=== PATIENT | male | born 1980 | race Caucasian/White ===

== ENCOUNTER 2022-11-13 00:33 | Outpatient (CLI) | payer OTHER, SELFPAY ==
--- NOTE | 2022-11-13 09:15 | DI.MRI_ITS ---
Exam(s) MR LOWER JOINT RT WO EXAM: MR LOWER JOINT RT WO CLINICAL HISTORY: RT KNEE PAIN, M25.561; RT KNEE INJURY, [id number]; INSTABILITY, M25.361. TECHNIQUE: Multiplanar multisequence MRI was performed. COMPARISON: No exams were available for comparison FINDINGS: Exam was somewhat limited due to patient motion. BONES: Contusion posterior aspect of lateral tibial plateau and medial aspect of medial femoral condy le. JOINTS: A small joint effusion is present. Articular cartilage: Patellofemoral joint: Articular cartilage is unremarkable. Medial femoral tibial joint: Articular cartilage is unremarkable. Lateral femoral tibial joint: Articular cartilage is unremarkable. TENDONS: Extensor mechanism: Unremarkable. Medial retinaculum: Unremarkable. Lateral retinaculum: Unremarkable. Popliteus: Unremarkable. MUSCLES: Unremarkable. MENISCI: The medial meniscus is unremarkable. The lateral meniscus is unremarkable. SOFT TISSUES: Unremarkable. LIGAMENTS: Anterior Cruciate: Some waviness, thickness and edema. Probable full-thickness tear at femoral attac hment. Posterior Cruciate: Unremarkable. Medial Collateral:Thickening and edema near femoral attachment. No evidence of full-thickness tear. Lateral Collateral: Some surrounding edema but no evidence of tear. OTHER: IMPRESSION: Tear of the anterior cruciate ligament at femoral attachment. Medial collateral ligament sprain near femoral attachment. Contusions of the lateral tibial plateau and medial femoral condyle. DATA REPOSITORY:
== END 2022-11-13 00:53 ==
LOC: DI 00:34
PROVIDERS: PCP Nurse Practitioner; Visit Provider Nurse Practitioner
DX: S83.511A Sprain of anterior cruciate ligament of right knee, initial encounter (principal); S83.411A Sprain of medial collateral ligament of right knee, initial encounter; X58.XXXA Exposure to other specified factors, initial encounter
CPT/HCPCS: 73721